=== PATIENT | female | born 1970 | race Two or more races ===

== ENCOUNTER 2017-02-21 00:05 | Emergency (ER) | payer SELFPAY ==
[~2017-02-21] VITALS: Ht 162.6 cm; Wt 95.3 kg
[2017-02-21 00:25] VITALS: BP 129/69
== END 2017-02-21 02:00 | disposition left against medical advice (07) ==
LOC: ER 00:08
DX: R07.89 Other chest pain (principal); R20.0 Anesthesia of skin; Z53.21 Procedure and treatment not carried out due to patient leaving prior to being seen by health care provider
CPT/HCPCS: 93005